=== PATIENT | female | born 1970 | race American Indian/Alaskan Native ===

== ENCOUNTER 2019-12-11 14:52 | Emergency (ER) | payer MEDICAID ==
[2019-12-11 14:59] VITALS: BP 135/85
--- NOTE | 2019-12-11 15:00 | Event Note ---
ED Screening Note ED Screening Note: CO CP P EATING LAST PM NO GI HX NO N/V/D PAIN SHARP -- MID CHEST DULL MED CHEST 02/19 NOW NO PCP RX NONE PMH NONE CIG OCC LMP POST MENOPAUSE FATHER DEC CA NO FAMILY HX CAD This initial assessment/diagnostic orders/clinical plan/treatment(s) is/are subject to change based on patients health status, clinical progression and re- assessment by fellow clinical providers in the ED. Further treatment and workup at subsequent clinical providers discretion. Patient/guardian urged not to elope from the ED as their condition may be serious if not clinically assessed and managed. Initial orders include: EKG LABS UA CARDIAC V GI
[2019-12-11 16:12] LABS: Basophils % (Auto) 0.4 % (0.0-1.8); Eosinophils # (Auto) 0.2 K/mm3 (0.0-0.4); Hematocrit 39.1 % (30.3-42.9); Hemoglobin 13.1 gm/dl (10.1-14.3); Lymphocytes # (Auto) 2.7 K/mm3 (1.2-5.4); Lymphocytes % (Auto) 50.1 % (13.4-35.0); Mean Corpuscular HGB Conc 34 % (30-34); Mean Corpuscular Volume 95 fl (79-97); Monocytes # (Auto) 0.4 K/mm3 (0.0-0.8); Monocytes % (Auto) 7.6 % (0.0-7.3); Platelet Count 216 K/mm3 (140-440); Red Blood Count 4.14 M/mm3 (3.65-5.03); Red Cell Distribution Width 12.9 % (13.2-15.2)
[2019-12-11 16:17] LABS: Bilirubin,Urine NEG (Negative); Blood,Urine NEG (Negative); Color,Urine Straw (Yellow); Protein,Urine <15 mg/dL mg/dL (Negative); Urobilinogen,Urine < 2.0 mg/dL (<2.0)
--- NOTE | 2019-12-11 16:41 | Emergency Department Report ---
ED Chest Pain HPI - General Chief Complaint: Abdominal Pain Stated Complaint: CP Time Seen by Provider: 12/11/19 14:58 Source: patient Mode of arrival: Ambulatory Limitations: No Limitations - History of Present Illness Initial Comments: This is a 49-year-old female with no prior medical history presents the ED complaining of midsternal chest pain that began yesterday. Patient states pain began after she finished eating dinner. Patient states that pain was sharp in nature and was intermittent. Patient states she took 3 aspirins prior to going to bed last night. Patient states that this morning she still felt the pain so she decided coming to be evaluated. Patient denies any trauma injuries to the chest. Patient denies taking any medication or have any medical problems. She denies fever/chills/nausea vomiting/shortness of breath/coughing/recent URI/sick contact Complaint: chest pain - Related Data Allergies Allergy/AdvReac Type Severity Reaction Status Date / Time No Known Allergies Allergy Verified 12/11/19 14:59 Heart Score - HEART Score History: Slightly suspicious EKG: Normal Age: 45-65 Risk factors: No known risk factors Troponin: < normal limit HEART Score: 1 ED Review of Systems ROS: Stated complaint: CP Other details as noted in HPI Comment: All other systems reviewed and negative ED Past Medical Hx - Past Medical History Previous Medical History?: No - Surgical History Past Surgical History?: No - Social History Smoking Status: Never Smoker Substance Use Type: None ED Physical Exam - General Limitations: No Limitations General appearance: alert, in no apparent distress - Head Head exam: Present: atraumatic, normocephalic - Eye Eye exam: Present: normal appearance - ENT ENT exam: Present: mucous membranes moist - Neck Neck exam: Present: normal inspection - Respiratory Respiratory exam: Present: normal lung sounds bilaterally, chest wall tenderness (Admits sternal in between breast). Absent: respiratory distress, wheezes, accessory muscle use - Cardiovascular Cardiovascular Exam: Present: regular rate, normal rhythm. Absent: systolic murmur, diastolic murmur, rubs, gallop - GI/Abdominal GI/Abdominal exam: Present: soft, normal bowel sounds - Extremities Exam Extremities exam: Present: normal inspection - Back Exam Back exam: Present: normal inspection - Neurological Exam Neurological exam: Present: alert, oriented X3 - Psychiatric Psychiatric exam: Present: normal affect, normal mood - Skin Skin exam: Present: warm, dry, intact, normal color. Absent: rash ED Course Vital Signs 12/11/19 14:57 Temperature 98.5 F Pulse Rate 88 Respiratory 20 Rate Blood Pressure 135/85 O2 Sat by Pulse 99 Oximetry MARY score - Mary Score Age > 65: (0) No Aspirin use within the Past 7 Days: (1) Yes 3 or more CAD Risk Factors: (0) No 2 or more Angina events in past 24 hrs: (0) No Known CAD with more than 50% Stenosis: (0) No Elevated Cardiac Markers: (0) No ST Deviation Greater than 0.5mm: (0) No MARY Score: 1 ED Medical Decision Making - Lab Data Result diagrams: 12/11/19 15:53 12/11/19 15:53 Laboratory Last Values WBC 5.3 K/mm3 (4.5-11.0) 12/11/19 15:53 RBC 4.14 M/mm3 (3.65-5.03) 12/11/19 15:53 Hgb 13.1 gm/dl (10.1-14.3) 12/11/19 15:53 Hct 39.1 % (30.3-42.9) 12/11/19 15:53 MCV 95 fl (79-97) 12/11/19 15:53 MCH 32 pg (28-32) 12/11/19 15:53 MCHC 34 % (30-34) 12/11/19 15:53 RDW 12.9 % (13.2-15.2) L 12/11/19 15:53 Plt Count 216 K/mm3 (140-440) 12/11/19 15:53 Lymph % (Auto) 50.1 % (13.4-35.0) H 12/11/19 15:53 Cloud % (Auto) 7.6 % (0.0-7.3) H 12/11/19 15:53 Eos % (Auto) 4.0 % (0.0-4.3) 12/11/19 15:53 Baso % (Auto) 0.4 % (0.0-1.8) 12/11/19 15:53 Lymph # 2.7 K/mm3 (1.2-5.4) 12/11/19 15:53 Cloud # 0.4 K/mm3 (0.0-0.8) 12/11/19 15:53 Eos # 0.2 K/mm3 (0.0-0.4) 12/11/19 15:53 Baso # 0.0 K/mm3 (0.0-0.1) 12/11/19 15:53 Seg Neutrophils % 37.9 % (40.0-70.0) L 12/11/19 15:53 Seg Neutrophils # 2.0 K/mm3 (1.8-7.7) 12/11/19 15:53 Sodium 141 mmol/L (137-145) 12/11/19 15:53 Potassium 4.2 mmol/L (3.6-5.0) 12/11/19 15:53 Chloride 105.7 mmol/L (98-107) 12/11/19 15:53 Carbon Dioxide 21 mmol/L (22-30) L 12/11/19 15:53 Anion Gap 19 mmol/L 12/11/19 15:53 BUN 15 mg/dL (7-17) 12/11/19 15:53 Creatinine 0.6 mg/dL (0.7-1.2) L 12/11/19 15:53 Estimated GFR > 60 ml/min 12/11/19 15:53 BUN/Creatinine Ratio 25 % 12/11/19 15:53 Glucose 96 mg/dL (65-100) 12/11/19 15:53 Calcium 9.2 mg/dL (8.4-10.2) 12/11/19 15:53 Total Bilirubin 0.50 mg/dL (0.1-1.2) 12/11/19 15:53 AST 20 units/L (5-40) 12/11/19 15:53 ALT 18 units/L (7-56) 12/11/19 15:53 Alkaline Phosphatase 102 units/L (35-129) 12/11/19 15:53 Troponin T < 0.010 ng/mL (0.00-0.029) 12/11/19 15:53 Total Protein 7.0 g/dL (6.3-8.2) 12/11/19 15:53 Albumin 4.3 g/dL (3.9-5) 12/11/19 15:53 Albumin/Globulin Ratio 1.6 % 12/11/19 15:53 Urine Color Straw (Yellow) 12/11/19 16:00 Urine Turbidity Clear (Clear) 12/11/19 16:00 Urine pH 7.0 (5.0-7.0) 12/11/19 16:00 Ur Specific Hunter 1.006 (1.003-1.030) 12/11/19 16:00 Urine Protein <15 mg/dl mg/dL (Negative) 12/11/19 16:00 Urine Glucose (UA) Neg mg/dL (Negative) 12/11/19 16:00 Urine Ketones Neg mg/dL (Negative) 12/11/19 16:00 Urine Blood Neg (Negative) 12/11/19 16:00 Urine Nitrite Neg (Negative) 12/11/19 16:00 Urine Bilirubin Neg (Negative) 12/11/19 16:00 Urine Urobilinogen < 2.0 mg/dL (<2.0) 12/11/19 16:00 Ur Leukocyte Esterase Neg (Negative) 12/11/19 16:00 Urine WBC (Auto) 1.0 /HPF (0.0-6.0) 12/11/19 16:00 Urine RBC (Auto) 1.0 /HPF (0.0-6.0) 12/11/19 16:00 U Epithel Cells (Auto) 1.0 /HPF (0-13.0) 12/11/19 16:00 - EKG Data EKG shows normal: sinus rhythm Rate: normal - EKG Data Interpretation: normal EKG - Medical Decision Making This 49-year-old female presented with chest wall pain. All labs are within normal limits, troponin negative x2. Chest x-ray shows no acute findings. EKG within normal limits. I discussed all this findings with the patient. I discussed with patient that this pain is most likely secondary to cartilage inflammation or muscle related. I discussed with the patient if she has any worsening symptoms or new onset of symptoms return to the ED immediately. I discussed with the patient to follow-up with a primary care physician within 3 days. Cardiology referral also given to patient for further testing. Vital signs are normal patient is in no acute distress. Patient is speaking in complete sentences she understands instructions and will follow Critical care attestation.: If time is entered above; I have spent that time in minutes in the direct care of this critically ill patient, excluding procedure time. ED Disposition Clinical Impression: Acute chest wall pain Disposition: DC-01 TO HOME OR SELFCARE Is pt being admited?: No Does the pt Need Aspirin: No Condition: Stable Instructions: Chest Pain (ED), Costochondritis (ED), Abdominal Pain (ED) Additional Instructions: Make sure to follow up with the primary care physician as discussed. You may take Pepcid twice daily. You may take naproxen or Motrin or Tylenol for pain Your chest x-ray and all your labs were negative today If you have any worsening symptoms or develop new symptoms please return to ED immediately. Referrals: PRIMARY CARE, [Primary Care Provider] - 3-5 Days ANGELITO REYNOLDS MD [Staff Physician] - 3-5 Days [facility] [Outside] - 3-5 Days [facility] [Outside] - 3-5 Days Forms: Work/School Release Form(ED) Time of Disposition: 18:37
[2019-12-11 16:42] LABS: Alanine Aminotransferase 18 units/L (7-56); Albumin 4.3 g/dL (3.9-5); BUN/Creatinine Ratio 25; Blood Urea Nitrogen 15 mg/dL (7-17); Calcium 9.2 mg/dL (8.4-10.2); Hemolysis Index 12
--- NOTE | 2019-12-11 16:52 | XRay Report ---
CHEST 2 VIEWS INDICATION / CLINICAL INFORMATION: MAIN: Chest Pain; pt c/o epigastric pain for years. reports no relief w/ ASA. reports the fact that i t did not get better with medication last night made her come in to be seen today.. COMPARISON: None available. FINDINGS: SUPPORT DEVICES: None. HEART / MEDIASTINUM: No significant abnormality. LUNGS / PLEURA: No significant pulmonary or pleural abnormality. No pneumothorax. ADDITIONAL FINDINGS: No significant additional findings. IMPRESSION: 1. No acute findings. Signer Name: Monroe Holder MD Signed: 12/11/2019 4:48 PM Workstation Name: [id number]
== END 2019-12-11 19:00 | disposition home or self-care (01) ==
LOC: ED 14:52
DX: R07.89 Other chest pain (principal)
CPT/HCPCS: 36415; 71046; 80053; 81001; 84484; 85025; 99284